=== PATIENT | male | born 1985 | race Caucasian/White ===

== ENCOUNTER 2021-08-18 04:16 | Emergency (ER) | payer MEDICARE, SELFPAY ==
[2021-08-18 04:18] VITALS: BP 152/105; PULSE 84; RESP 18; TEMP 36.8; O2SAT 98; BMI 35.5
--- NOTE | 2021-08-18 04:28 | EKG12_ITS ---
Test Reason : DYSRHYTHMIA Blood Pressure : / mmHG Vent. Rate : 076 BPM Atrial Rate : 076 BPM P-R Int : 132 ms QRS Dur : 096 ms QT Int : 376 ms P-R-T Axes : 024 034 009 degrees QTc Int : 423 ms Normal sinus rhythm Normal ECG Confirmed by VIJAYA GUZMAN, TATYANA ([id number]), editor & co founder HAZEL ROBLES ([id number]) on 08/21/2021 9:21:49 A M Referred By: DYAN Confirmed By:KAROLYN LILLY MD
--- NOTE | 2021-08-18 04:29 | EX.ED.DYSGE1 ---
HPI History of Present Illness Chief Complaint: Cough Informant: patient Onset/Context/Timing Onset: Days Context: Gradual Onset Current Severity: Moderate Maximum Severity: Moderate Narrative Narrative: Patient presents with cough and chest congestion for the past couple of days. He is coughing up green sputum. He denies fever or chills. This morning he woke up with a burning sensation in his chest. PFSH PFSH Medical History no medical history no medical history Home Medications albuterol sulfate [Ventolin HFA] 1 - 2 puff INHALATION Q4H PRN PRN #1 inhaler 01/25/16 [Rx Last Taken Unknown] azithromycin 250 mg PO DAILY #4 tablet 01/25/16 [Rx Last Taken Unknown] albuterol sulfate [Ventolin HFA] 2 puff INHALATION Q4H PRN PRN #1 inhaler 08/18/21 [Rx Last Taken Unknown] prednisone 60 mg PO DAILY #12 tab 08/18/21 [Rx Last Taken Unknown] Allergy/AdvReac Type Severity Reaction Status Date / Time No Known Allergies Allergy Verified 02/23/14 12:10 Surgical History no surgical history Social History Smoking Status: Current some day smoker tobacco type: cigars ROS ROS ED Constitutional Constitutional ED: Denies chills or fever(s) Eyes Eyes: Denies change in vision ENT ENT ED: Denies sore throat Cardiovascular Cardiovascular: Denies chest pain Respiratory/Chest Respiratory/Chest: Reports cough, dyspnea, sputum and other Details: Burning sensation in lungs. Gastrointestinal Gastrointestinal: Denies abdominal pain, diarrhea, nausea or vomiting Genitourinary Genitourinary ED: Denies dysuria Musculoskeletal Musculoskeletal: Denies back pain Integumentary Denies rash Neurologic Neurologic: Denies headache(s) or weakness Allergic/Immunologic Allergic/Immunologic ED: Denies urticaria EXAM Physical Exam Const Vital Signs: 08/18/21 04:18 08/18/21 04:31 08/18/21 04:36 Temperature 98.2 F 98.2 F Temperature Source Temporal Temporal Pulse Rate 84 84 88 Respiratory Rate 18 18 18 Respiratory Pattern Normal Blood Pressure 152/105 H 152/105 H Blood Pressure Mean 120 120 Pulse Ox 98 98 08/18/21 05:26 Temperature 98.2 F Temperature Source Temporal Pulse Rate 88 Respiratory Rate 18 Respiratory Pattern Blood Pressure 152/105 H Blood Pressure Mean 120 Pulse Ox 98 Positive well nourished and well developed General Appearance ED: well developed HEENT Reports moist mucous membranes Eyes PERRL and EOMs intact bilaterally Neck supple Chest Wall inspection of chest normal and palpation of chest normal Resp normal respiratory effort Resp Narrative: Slightly diminished lung sounds bilaterally. Auscultation: diminished lung sounds Cardio regular rate and regular rhythm GI normal to inspection, nondistended, normoactive bowel sounds and non-tender Palpation: soft Extremity normal to inspection Neuro oriented x3 Sensorium / Orientation: alert Psych mental status grossly normal Skin no rashes or lesions noted MDM MDM MDM Narrative Medical decision making narrative: Patient given DuoNeb treatment and p.o. prednisone. EKG, chest x-ray, Covid test obtained. Lab Data Attestation: I reviewed the patient's lab results. Labs: Rapid Covid test negative. Radiography Chest X-Ray - ED: 1 View, Read by ED Physician, Normal, Heart, Lungs and Mediastinum Diagnostic Testing: Clinical Impression(s) from Imaging Studies Chest X-Ray 08/18/21 04:45 IMPRESSION: No radiographic evidence of acute cardiopulmonary disease. Electronically Signed: Nikole Omer MD at 5:17 EDT , Service support , EKG Initial EKG: Attestation: I personally reviewed and interpreted this EKG as follows: Interpretation: Sinus Rhythm (Sinus at 76 with no acute ischemia.) Treatment and Re-Evaluation Comments:: On repeat evaluation patient reports significant improvement in his breathing. He is able to take a deep breath without significant cough. Lung sounds are clear to auscultation. Test results discussed with him. Chest x-ray per my interpretation reveals no focal infiltrate. Radiologist interpretation is reviewed. Covid test negative. Patient will be given prescription for albuterol inhaler and prednisone. I believe his symptoms are viral in nature and do not require antibiotic at this time. Discharge Plan Triage Chief Complaint: Cough ED Provider: Shania Valerio Dx/Rx/DC Orders Clinical Impression: Viral URI Instructions: ED URI, Viral, No Abx (Adult) Prescriptions: New albuterol sulfate [Ventolin HFA] 1 INHALER inhaler 2 puff inhalation Q4H PRN PRN (Reason: Wheezing) Qty: 1 RF: 0 prednisone 20 mg tablet 60 mg PO DAILY Qty: 12 RF: 0 No Action albuterol sulfate [Ventolin HFA] 1 INHALER inhaler 1 - 2 puff inhalation Q4H PRN PRN (Reason: Wheezing) Qty: 1 RF: 0 azithromycin 250 MG tablet 250 mg PO DAILY Qty: 4 RF: 0 Primary Care Provider: Care Physician,No Primary Referrals: Care Physician,No Primary [Primary Care Provider] -
[2021-08-18 04:31] VITALS: BP 152/105; PULSE 84; RESP 18; TEMP 36.8; O2SAT 98
[2021-08-18 04:32] VITALS: O2SAT 99
[2021-08-18 04:36] VITALS: PULSE 88; RESP 18
[2021-08-18] MEDS: Ipratropium/Albuterol Sulfate 3 ML AMPUL.NEB INHALATION (04:36)
[2021-08-18] MEDS: predniSONE 20 MG Tablet 60 MG PO (04:40)
--- NOTE | 2021-08-18 04:45 | RAD_ITS ---
STUDY: X-RAY CHEST REASON FOR EXAM: Male, 35 years old patient with cough. TECHNIQUE: Single AP portable view of the chest. COMPARISON: 08/18/2021. FINDINGS: The lungs are clear and hyperexpanded. There is no demonstrated pleural abnormality. Normal size heart. Normal mediastinum and reddy. There is prominence of the pulmonary hilar arteries without peripheral pulmonary vascular congestion. Normal visualized aortic arch and descending thoracic aorta. Normal visualized thoracic spine. Normal visualized ribs, clavicles, and shoulders. There is no demonstrated abnormality of the visualized soft tissue structures of the upper abdomen. RAD/Chest 1 View (Portable) IMPRESSION: No radiographic evidence of acute cardiopulmonary disease. Electronically Signed: Nikole Omer MD at 5:17 EDT , Service support ,
[2021-08-18 05:26] VITALS: BP 152/105; PULSE 88; RESP 18; TEMP 36.8; O2SAT 98
== END 2021-08-18 05:47 | disposition home or self-care (01) ==
PROVIDERS: Emergency Provider Emergency Medicine
DX: J06.9 Acute upper respiratory infection, unspecified (principal); Z20.822 Contact with and (suspected) exposure to COVID-19; F17.290 Nicotine dependence, other tobacco product, uncomplicated; Z79.899 Other long term (current) drug therapy
CPT/HCPCS: 71045; 87426; 93005; 94640; 99283

== ENCOUNTER 2022-02-18 14:10 | Emergency (ER) | payer SELFPAY ==
[2022-02-18 14:12] VITALS: BP 139/111; PULSE 87; RESP 16; TEMP 36.5; O2SAT 98; BMI 34.2
--- NOTE | 2022-02-18 14:27 | EDS_ITS ---
HPI History of Present Illness Chief Complaint: Laceration Detail of Chief Complaint: Injury to right thumb that occurred prior to arrival in the emergency depar Informant: patient Narrative Narrative: Patient presents to the emergency department with an injury to the right thumb that occurred prior to arrival. Patient states that he was taking the door off of an oven and the door was spring-loaded and came off and struck him on the right thumb. Patient is right-hand dominant. Patient unsure of his last tetanus shot. Patient did suffer a laceration of the finger. PFSH PFSH Home Medications albuterol sulfate [Ventolin HFA] 1 - 2 puff INHALATION Q4H PRN PRN #1 inhaler 01/25/16 [Rx Last Taken Unknown] azithromycin 250 mg PO DAILY #4 tablet 01/25/16 [Rx Last Taken Unknown] albuterol sulfate [Ventolin HFA] 2 puff INHALATION Q4H PRN PRN #1 inhaler 08/18/21 [Rx Last Taken Unknown] prednisone 60 mg PO DAILY #12 tab 08/18/21 [Rx Last Taken Unknown] cephalexin 500 mg PO Q6 #40 capsule 02/18/22 [Rx Last Taken Unknown] Allergy/AdvReac Type Severity Reaction Status Date / Time No Known Allergies Allergy Verified 02/18/22 14:12 Social History Smoking Status: Current some day smoker tobacco type: cigars ROS ROS ED Constitutional Constitutional ED: Reports systems reviewed and no addt'l complaints, except as documented; Denies body ache(s), change in weight or chills Eyes Eyes: Denies acute decrease in peripheral vision, change in vision, double vision or loss of vision ENT ENT ED: Reports none; Denies ear pain, lip swelling, loss taste/smell, neck pain, otalgia or sore throat Cardiovascular Cardiovascular: Reports none; Denies abdominal pain, chest pain with activity, leg edema, lightheadedness, palpitations, rapid heart rate or syncope Respiratory/Chest Respiratory/Chest: Reports none; Denies change in mental status, dry cough, dyspnea, hemoptysis, shortness of breath at rest or shortness of breath with exertion Gastrointestinal Gastrointestinal: Reports none; Denies abdominal pain, change in stool character, diarrhea, hematemesis, hematochezia, melena, rectal bleeding or vomiting Genitourinary Genitourinary ED: Reports none; Denies abdominal discomfort, anuria, dysuria, genital pain or polyuria Musculoskeletal Musculoskeletal: Reports none and other Details: Right thumb injury/laceration ; Denies arthralgias, back pain, difficulty walking, extremity pain, muscle weakness or myalgias Integumentary Reports none; Denies abscess or rash Neurologic Neurologic: Reports none; Denies abnormal gait, confusion, focal weakness, frequent falls, headache(s), loss of vision, numbness, paresthesias, radicular pain, vertigo or weakness Psychiatric Psychiatric: Reports systems reviewed and no addt'l complaints, except as documented and none; Denies behavioral changes, confusion, difficulty concentrating, hallucinations, suicidal ideation, tactile hallucinations or visual hallucinations Endocrine Endocrinology: Denies none, cold intolerance, excessive sweating, fatigue or heat intolerance Hematologic/Lymphatic Hematologic/Lymphatic: Reports none; Denies anemia, easy bleeding or easy bruising Allergic/Immunologic Allergic/Immunologic ED: Denies as per HPI, none, lip swelling, mouth swelling, throat swelling, tongue swelling or hives EXAM Physical Exam Const Vital Signs: 02/18/22 14:12 Temperature 97.7 F L Temperature Source Temporal Pulse Rate 87 Respiratory Rate 16 Blood Pressure 139/111 H Blood Pressure Mean 120 Pulse Ox 98 Oxygen Delivery Method Room Air Positive well nourished and well developed General Appearance ED: well developed and NAD HEENT Reports TM's clear and moist mucous membranes normocephalic and atraumatic; Negative for trauma or tenderness Tympanic Membrane ED: Yes TM's clear Eyes PERRL and EOMs intact bilaterally General Eye ED: Negative for pale conjunctiva or scleral icterus Neck no lymphadenopathy, supple and no JVD General: Negative for tenderness Chest Wall inspection of chest normal and palpation of chest normal Chest: Negative for tenderness Resp normal respiratory effort and clear to auscultation bilaterally Effort and Inspection: Negative for respiratory distress or pain with movement Auscultation: Negative for rhonchi, wheezes or diminished lung sounds Cardio regular rate, regular rhythm, S1 normal heart sound, S2 normal heart sound and no murmurs Peripheral Pulses: pulses 2+ throughout GI normal to inspection, nondistended, normoactive bowel sounds, soft to palpation, non-tender, non-distended and no masses Back/Spine no CVA tenderness and no thoracic nor lumbar tenderness Extremity Extremity Narrative: Right thumb-patient has a 2.5 cm laceration over the dorsum of the IP joint. No active bleeding currently. He is neurovascular intact distally. He is abnormal flexion extension against resistance. Patient is some diffuse tenderness palpation over the IP joint. General Extremety ED: Negative for edema General Extremity: Negative for edema Neuro oriented x3, CN's II-XII intact bilaterally, no sensory deficits noted and gait normal Sensorium / Orientation: awake, alert, oriented to person, oriented to place and oriented to time Motor Exam: strength 5/5 throughout and strength abnormal Psych mental status grossly normal Skin no rashes or lesions noted and no wounds PROC Procedures Lacerations Right thumb laceration: Length: 0.98 in Depth: Tendon Shape: Flap Prep: Sterile Conditions and Shure-Clens Laceration repair: Digital block, Lidocaine and Wound explored Irrigated (ml): 100 Number of Sutures/[place]: 3 Suture Information: Simple and 5-0 Comment: Upon inspection of the wound he does have a partial laceration of the extensor tendon approximately 30%. He has normal flexion extension against resistance. Wound was cleansed with Shur-Clens and irrigated with copious saline. Using 5-0 nylon a total of 3 single erupted sutures placed with good wound edge approximation. Patient tolerated procedure well. Patient will be given an aluminum splint. He will be started on Keflex. MDM MDM MDM Narrative Medical decision making narrative: Patient has an extensor tendon laceration of the right thumb that is partial at about 30%. I will start him on Keflex. I will splinted with an aluminum splint. Patient will be referred to follow-up with Dr. Saldana who is on for orthopedics. Patient have his sutures removed in 10 days. Patient advised to return if increasing pain, redness, swelling, or condition should worsen anyway. Discharge Plan Triage Chief Complaint: Laceration ED Provider: Afsaneh Cabrera Dx/Rx/DC Orders Clinical Impression: Laceration of right thumb, Extensor tendon laceration of finger with open wound Instructions: ED Laceration, Hand: All Closures Prescriptions: New cephalexin [cephalexin] 500 MG capsule 500 mg PO Q6 Qty: 40 RF: 0 No Action albuterol sulfate [Ventolin HFA] 1 INHALER inhaler 1 - 2 puff inhalation Q4H PRN PRN (Reason: Wheezing) Qty: 1 RF: 0 azithromycin 250 MG tablet 250 mg PO DAILY Qty: 4 RF: 0 albuterol sulfate [Ventolin HFA] 1 INHALER inhaler 2 puff inhalation Q4H PRN PRN (Reason: Wheezing) Qty: 1 RF: 0 prednisone 20 mg tablet 60 mg PO DAILY Qty: 12 RF: 0 Primary Care Provider: Care Physician,No Primary Referrals: Reymundo Saldana DO [STAFF PHYSICIAN] - 10 Day for suture removal Care Physician,No Primary [Primary Care Provider] - Disposition Disposition: Home, Self Care
--- NOTE | 2022-02-18 14:36 | RAD_ITS ---
HISTORY: injury. TECHNIQUE: XR Fingers Min 2 Views. Number of images including paperwork: 3. COMPARISON: None. FINDINGS: OSSEOUS STRUCTURES: No acute fracture. Mineralization unremarkable. JOINT SPACES: Maintained. No dislocation. SOFT TISSUES: No radiopaque foreign body identified. Soft tissue swelling of the thumb RAD/Finger(s) Min 2 Views IMPRESSION: No acute fracture or dislocation identified in the right thumb. at 1513 Reported and signed by: Magalis Farr MD Electronically Signed: Magalis Farr MD at 15:12 EDT ,
[2022-02-18] MEDS: Diphth,Pertuss(Acell),Tet Vac 0.5 ML Vial IM (14:47)
[2022-02-18] MEDS: Cephalexin 250 MG Capsule 500 MG PO (15:08)
[2022-02-18] MEDS: Lidocaine 1% (20 ml mdv) 20 ML Vial 8 ML INFILT (15:08)
== END 2022-02-18 15:26 | disposition home or self-care (01) ==
PROVIDERS: Emergency Provider Emergency Medicine; Visit Provider Emergency Medicine
DX: S66.221A Laceration of extensor muscle, fascia and tendon of right thumb at wrist and hand level, initial encounter (principal); S61.011A Laceration without foreign body of right thumb without damage to nail, initial encounter; W22.8XXA Striking against or struck by other objects, initial encounter; F17.290 Nicotine dependence, other tobacco product, uncomplicated; Z23 Encounter for immunization
CPT/HCPCS: 12001; 73140; 90471; 90715; 99282

== ENCOUNTER 2023-11-22 14:29 | Emergency (ER) | payer SELFPAY ==
[2023-11-22 14:30] VITALS: BP 154/112; PULSE 114; RESP 16; TEMP 37.1; O2SAT 98; BMI 35.1
--- NOTE | 2023-11-22 14:34 | EDS_ITS ---
HPI HPI - URI History of Present Illness Chief Complaint: Sore Throat Informant: patient Onset/Context/Timing Onset: Days (2) Context: Gradual Onset Timing: Continuous Quality: Stabbing Location: Throat, left worse than right Worsened by: Swallowing, Eating Solids and Drinking Liquids Relieved by: - (Nothing) Associated Symptoms Associated Symptoms: Positive for Headache, Myalgias and Nausea; Negative for Nasal Congestion, Sinus Pressure, Vomiting, Diarrhea, Shortness of Breath, Chest Pain, Nonproductive cough, Hemoptysis or Productive Cough Narrative Narrative: Patient presents with a sore throat that has been getting worse over the past 2 days. Patient states she took some ibuprofen yesterday and it still feels like there is a pill stuck in the left side of his throat. Patient states his pain is stabbing. Patient states it is worse on the left but is over his entire throat. Patient admits to some subjective chills but denies any fevers. Patient admits to a headache. Patient also admits to body aches and nausea. Patient denies any vomiting. Patient denies any shortness of breath or cough. ROS ROS ED Constitutional Constitutional ED: Reports chills and subjective; Denies fever(s) Eyes Eyes: Denies blurry vision or change in vision ENT ENT ED: Reports sore throat; Denies rhinorrhea Cardiovascular Cardiovascular: Denies chest pain or palpitations Respiratory/Chest Respiratory/Chest: Denies cough or dyspnea Gastrointestinal Gastrointestinal: Reports nausea; Denies vomiting Genitourinary Genitourinary ED: Denies dysuria or hematuria Musculoskeletal Musculoskeletal: Reports myalgias and neck pain; Denies back pain Integumentary Denies abscess or rash Neurologic Neurologic: Reports headache(s); Denies weakness Allergic/Immunologic Allergic/Immunologic ED: Denies mouth swelling or urticaria PFSH PFSH Medical History no medical history no medical history Home Medications NK 11/22/23 [History Last Taken Unknown] Allergy/AdvReac Type Severity Reaction Status Date / Time No Known Allergies Allergy Verified 11/22/23 14:39 Surgical History no surgical history no surgical history Social History Smoking Status: Current some day smoker tobacco type: cigars EXAM Physical Exam Const Vital Signs: 11/22/23 14:30 11/22/23 14:36 11/22/23 15:09 Temperature 98.7 F Temperature Source Temporal Pulse Rate 114 H 110 H Respiratory Rate 16 16 Respiratory Effort Normal Respiratory Pattern Normal Blood Pressure 154/112 H Blood Pressure Mean 126 Pulse Ox 98 98 Oxygen Delivery Method Room Air Room Air Positive well nourished and well developed General Appearance ED: well developed and NAD HEENT Reports moist mucous membranes HEENT Narrative: Tympanic membranes are clear bilaterally. normocephalic and atraumatic Throat: posterior oropharynx abnormal Positive for edema and erythema; Negative for exudates Eyes PERRL and EOMs intact bilaterally Neck supple, no meningeal signs and no JVD General: lymphadenopathy anterior cervical Resp normal respiratory effort and clear to auscultation bilaterally Cardio Rate: regular rate Rhythm: regular rhythm GI non-tender and non-distended Palpation: soft Neuro oriented x3, CN's II-XII intact bilaterally and no sensory deficits noted Sensorium / Orientation: alert Motor Exam: strength 5/5 throughout Psych mental status grossly normal MDM MDM MDM Narrative Medical decision making narrative: Differential diagnosis includes strep pharyngitis, viral pharyngitis, upper respiratory infection, and pharyngeal abscess. CT scan of the soft tissue neck will be obtained to assess for pharyngeal abscess. Rapid strep will be obtained to assess for strep pharyngitis, COVID-19 PCR will be obtained to assess for COVID-19 infection. Influenza PCR will be obtained to assess for influenza infection. RSV PCR will be obtained to assess for RSV infection. Basic metabolic profile will be obtained to assess for renal function and electrolyte abnormality. CBC will be obtained to assess for leukocytosis. Lab Data Attestation: I reviewed the patient's lab results. Lab results narrative: CBC was reviewed. There is a slight leukocytosis of 11.8. The remainder was within normal limits. Basic metabolic profile was reviewed and was within normal limits. Labs: Laboratory Results - last 24 hr 11/22/23 15:00 WBC 11.8 H RBC 5.11 Hgb 15.9 Hct 44.7 MCV 87.5 MCH 31.1 MCHC 35.6 RDW Std Deviation 39.4 RDW Coeff of [place] 12.2 Plt Count 289 MPV 9.3 Immature Gran % (Auto) 0.300 Neut % (Auto) 84.1 H Lymph % (Auto) 7.8 L [place] % (Auto) 7.2 Eos % (Auto) 0.3 Baso % (Auto) 0.3 Absolute Neuts (auto) 9.9 H Absolute Lymphs (auto) 0.92 Nucleated RBC % 0 Sodium 138 Potassium 3.7 Chloride 106 Carbon Dioxide 27.0 Anion Gap 5 BUN 14 Creatinine 1.14 Estim Creat Clear Calc 103.11 Est GFR (MDRD) Af Amer 92 Est GFR (MDRD) Non-Af 76 BUN/Creatinine Ratio 12.3 Glucose 94 Calcium 9.1 Radiography Diagnostic Testing: Clinical Impression(s) from Imaging Studies Soft Tissue Neck CT 11/22/23 14:47 IMPRESSION: Heterogeneous thickening of the aryepiglottic folds bilaterally. The airway is not compromised. Electronically Signed: Arnulfo Bradford MD at 15:30 EST , CT scan of the soft tissue neck was obtained. There is no evidence of any abscess. Airway is patent. There is some thickening of the area epiglottic folds bilaterally. There are no foreign bodies noted. This was interpreted by the radiologist was also independently reviewed by myself. Treatment and Re-Evaluation Narrative: Patient was given IV fluids. Patient was advised of his findings. Patient was advised that this is most likely a viral pharyngitis. Patient was instructed to drink plenty of fluids. Patient was instructed to follow-up with his primary care physician in 5 to 7 days. Patient was instructed to return if worse in any way. Patient understood and was agreeable with the plan. All questions were answered. Discharge Plan Triage Chief Complaint: Sore Throat Other Complaint: Foreign Body ED Provider: Wagner Cline Dx/Rx/DC Orders Clinical Impression: Acute viral pharyngitis Instructions: ED Pharyngitis, Viral Prescriptions: No Action NK Primary Care Provider: Care Physician,No Primary Referrals: Tanya Sorenson MD [Med Staff - Protein Specialist] - 5-7 Days Care Physician,No Primary [Primary Care Provider] - Disposition Disposition: Home, Self Care
--- NOTE | 2023-11-22 14:47 | CT_ITS ---
STUDY: CT SOFT TISSUE NECK WITH CONTRAST REASON FOR EXAM: Male, 38 years old. Throat pain. Dysphagia. RADIATION DOSAGE (If Supplied By Facility): CTDIvol = ( 18.52 ) mGy, DLP = ( 610.94 ) mGycm TECHNIQUE: The patient was scanned in a multi-detector CT scanner. High resolution transaxial imaging was performed following intravenous administration of IV 75mL [id number]-370. Sagittal and coronal images were reconstructed. Individualized dose optimization techniques were used for this CT. COMPARISON: None. FINDINGS: Normal bilateral parotid glands. Normal bilateral ladle watcher spaces. Normal bilateral parapharyngeal spaces. Normal bilateral carotid spaces. Normal bilateral sublingual and submandibular glands and spaces. Normal visualized nasopharynx. Normal retropharyngeal space. Normal perivertebral space. Normal visualized bilateral faucial tonsils. The visualized tongue, tongue base and oropharynx are normal. The visualized cervical lymph nodes (levels I-) are within normal size limits, and maintain normal morphology. There is no demonstrated solid or cystic mass lesion. There is no abnormal contrast enhancement. Normal epiglottis, bilateral vallecula and hypopharynx. The pre-epiglottic and paraglottic adipose spaces are normal. There is thickening of the aryepiglottic folds bilaterally. Normal subglottic trachea. Normal bilateral lobes of the thyroid gland. Normal visualized pulmonary apices. Normal visualized paranasal sinuses. Normal visualized cervical spine. CT/Soft Tissue Neck WITH Contrast IMPRESSION: Heterogeneous thickening of the aryepiglottic folds bilaterally. The airway is not compromised. Electronically Signed: Arnulfo Bradford MD at 15:30 EST ,
[2023-11-22] MEDS: 0.9% Normal Saline (1000mL) 1,000 ML 1000 ML IV (15:04)
[2023-11-22 15:09] VITALS: PULSE 110; RESP 16; O2SAT 98
[2023-11-22 15:29] LABS: Absolute Lymphocyte Count 0.92 X10^3/uL (0.83-4.51); Absolute Neutrophil Count 9.9 X10^3/uL (2.0-7.7); Basophil# 0.03 X10^3/uL; Basophil% 0.3 % (0-1); Eosinophil# 0.04 X10^3/uL; Eosinophils% 0.3 % (0-5); Hematocrit 44.7 % (40-54); Hemoglobin 15.9 g/dL (13.0-16.5); Lymphocyte # 0.92 X10^3/ul (0.83-4.51); Lymphocyte % 7.8 % (19-41); Mean Corp Hgb Conc 35.6 g/dL (32-36); Mean Corpuscular Hgb 31.1 pg (27.0-32.0); Mean Corpuscular Volume 87.5 fL (80-94); Mean Platelet Vol. 9.3 fl (6.2-12.0); Monocyte# 0.85 X10^3/uL; Monocyte% 7.2 % (0-10); NRBC Flagged by Analyzer 0 % (0-5); Neutrophil # 9.92 X10^3/uL (2.7-7.7); Neutrophil % 84.1 % (47-70); Platelet Count 289 K/mm3 (150-450); RBC Distribution Width CV 12.2 % (11.6-14.6); RBC Distribution Width SD 39.4 fl (35.1-43.9); Red Blood Count 5.11 M/mm3 (4.6-6.2); White Blood Count 11.8 K/mm3 (4.4-11.0)
[2023-11-22 15:49] LABS: Anion Gap 5 (5-15); BUN 14 mg/dL (7-18); BUN/Creat Ratio 12.3 RATIO (10-20); Calcium,Total 9.1 mg/dL (8.5-10.1); Chloride 106 mmol/L (98-107); Creatinine, Serum 1.14 mg/dL (0.70-1.30); EST Glomerular Filtration Rate 76 mL/min (>60); Est Glom Filt Rate - Afr Amer 92 mL/min (>60); Estimated Creatinine Clearance 103.11 ml/min; Glucose 94 mg/dL (74-106); Potassium 3.7 mmol/L (3.5-5.1); Sodium Level 138 mmol/L (136-145)
== END 2023-11-22 16:37 | disposition home or self-care (01) ==
PROVIDERS: Emergency Provider Emergency Medicine; Visit Provider Emergency Medicine
DX: J02.9 Acute pharyngitis, unspecified (principal); M79.10 Myalgia, unspecified site; Z11.52 Encounter for screening for COVID-19; R51.9 Headache, unspecified; R11.0 Nausea; F17.290 Nicotine dependence, other tobacco product, uncomplicated
CPT/HCPCS: 70491; 80048; 85025; 87631; 87651; 96360; 96361; 99284; Q9967; A4216